=== PATIENT | female | born 1990 | race Caucasian/White ===

== ENCOUNTER → 2020-01-20 15:58 | Outpatient (CLI) | payer OTHER ==
[~2020-01-20 15:58] MED LIST: DOXYCYCLINE HY100 MG PO; NAPR500T14 PO
== END | disposition home or self-care (01) ==
LOC: LAB 15:58
PROVIDERS: ATTEND Emergency Medicine Pediatric Emergency Medicine
DX: R05 Cough (principal); R06.2 Wheezing; Z20.818 Contact with and (suspected) exposure to other bacterial communicable diseases; R50.9 Fever, unspecified